=== PATIENT | female | born 1975 | race American Indian/Alaskan Native ===

== ENCOUNTER 2016-10-23 10:15 | Emergency (ER) | payer MEDICAID ==
[2016-10-23 11:07] VITALS: BP 117/61
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
[2016-10-23] MEDS ORDERED: THERMAZENE 50 GRAM TP SCH (13:00)
== END 2016-10-23 13:40 | disposition home or self-care (01) ==
LOC: ED 10:15
DX: T23.002A Burn of unspecified degree of left hand, unspecified site, initial encounter (principal); X10.0XXA Contact with hot drinks, initial encounter; Y93.89 Activity, other specified; Y99.8 Other external cause status; Y92.89 Other specified places as the place of occurrence of the external cause
CPT/HCPCS: 99282

== ENCOUNTER 2018-07-17 18:16 | Emergency (ER) | payer MEDICAID ==
[2018-07-17 18:41] VITALS: BP 138/80
[2018-07-17 19:30] LABS: HCG Qualitative,Urine Positive (Negative)
[2018-07-17 19:33] LABS: Bacteria,Urine 1+ /HPF (Negative); Bilirubin,Urine NEG (Negative); Blood,Urine NEG (Negative); Color,Urine Yellow (Yellow); Mucus,Urine FEW /HPF; Protein,Urine <15 mg/dL mg/dL (Negative); Urobilinogen,Urine < 2.0 mg/dL (<2.0); WBC,Urine < 1.0 /HPF (0.0-6.0)
--- NOTE | 2018-07-17 22:59 | Emergency Department Report ---
ED Female HPI - General Chief complaint: Urogenital-Female Stated complaint: VAGINAL BURNING Time Seen by Provider: 07/17/18 22:55 Source: patient, family Mode of arrival: Ambulatory Limitations: No Limitations - History of Present Illness Initial comments: This is a 43-year-old female patient here reported that she is having abdominal pain and that she is 3 weeks . She is complaining off vaginal burning denies any bleeding or discharge. She is also complaining of abdominal pain at 4 out of 10. Denies any nausea or vomiting. Denies any fever or chills. Patient is para 3 0 with 2 miscarriages. He does not have [facility]ATOR but [facility] she plans to get one pretty soon. MD Complaint: dysuria, pelvic pain Onset/Timin -: days(s) Location: suprapubic, other (urinary burning) Radiation: non-radiating Severity: mild Severity scale (0 -10): 4 Quality: cramping, burning Consistency: constant Improves with: other (after urinating and) Worsens with: urination Are you Now?: Yes (3 weeks) Last Menstrual Period: 06/21/18 EDC: 03/28/19 Associated Symptoms: abdominal pain, dysuria. denies: vaginal discharge, vaginal bleeding, nausea/vomiting, fever/chills, headaches, loss of appetite, hematuria, rash, seizure, shortness of breath, syncope, weakness - Related Data Sexually active: Yes Previous Rx's Medication Instructions Recorded Last Taken Type SILVER sulfADIAZINE 50 GRAM 1 applic TP BID #1 tube 10/23/16 Unknown Rx [Thermazene 50 Gram] Vit No.130/Iron/Folic 1 each PO QAM 30 Days #30 tablet 07/18/18 Unknown Rx [ Tablet] cephALEXin [Keflex] 500 mg PO Q12H 7 Days #14 cap 07/18/18 Unknown Rx Allergies Allergy/AdvReac Type Severity Reaction Status Date / Time No Known Allergies Allergy Unverified 10/23/16 11:02 ED Review of Systems ROS: Stated complaint: VAGINAL BURNING Other details as noted in HPI Constitutional: denies: chills, fever Eyes: denies: vision change ENT: denies: throat pain, congestion Respiratory: denies: cough, shortness of breath, wheezing Cardiovascular: denies: chest pain, palpitations, dyspnea on exertion, edema, syncope Gastrointestinal: abdominal pain. denies: nausea, vomiting, diarrhea, hematemesis, hematochezia Genitourinary: dysuria, abnormal menses. denies: urgency, frequency, hematuria, discharge, dyspareunia Musculoskeletal: denies: back pain, joint swelling, arthralgia, myalgia Skin: denies: rash Neurological: denies: headache, weakness, numbness, paresthesias, confusion, abnormal gait, vertigo ED Past Medical Hx - Past Medical History Previous Medical History?: No - Surgical History Past Surgical History?: Yes Additional Surgical History: D and C - Family History Family history: hypertension - Social History Smoking Status: Never Smoker Substance Use Type: None - Medications Home Medications: Home Medications Medication Instructions Recorded Confirmed Last Taken Type SILVER sulfADIAZINE 50 GRAM 1 applic TP BID #1 tube 10/23/16 Unknown Rx [Thermazene 50 Gram] Vit No.130/Iron/Folic 1 each PO QAM 30 Days #30 tablet 07/18/18 Unknown Rx [ Tablet] cephALEXin [Keflex] 500 mg PO Q12H 7 Days #14 cap 07/18/18 Unknown Rx ED Physical Exam - General Limitations: No Limitations General appearance: alert, in no apparent distress - Head Head exam: Present: atraumatic, normocephalic, normal inspection - Eye Eye exam: Present: normal appearance, PERRL, EOMI Pupils: Present: normal accommodation - ENT ENT exam: Present: normal exam, normal orophraynx, mucous membranes moist - Neck Neck exam: Present: normal inspection, full ROM, other (no C-spine tenderness). Absent: tenderness, lymphadenopathy - Respiratory Respiratory exam: Present: normal lung sounds bilaterally. Absent: respiratory distress, chest wall tenderness - Cardiovascular Cardiovascular Exam: Present: regular rate, normal rhythm, normal heart sounds - GI/Abdominal GI/Abdominal exam: Present: soft, normal bowel sounds. Absent: distended, tenderness, rigid - Extremities Exam Extremities exam: Present: normal inspection, full ROM, normal capillary refill, other (No cce. + 2 pulses in all extremities, no neurovascular compromise). Ab sent: tenderness, pedal edema, joint swelling, calf tenderness - Back Exam Back exam: Present: normal inspection, full ROM, other (ambulates without any difficulties). Absent: tenderness, CVA tenderness (R), CVA tenderness (L), muscle spasm, paraspinal tenderness, vertebral tenderness, rash noted - Neurological Exam Neurological exam: Present: alert, oriented X3, normal gait, reflexes normal. Absent: motor sensory deficit - Psychiatric Psychiatric exam: Present: normal affect, normal mood - Skin Skin exam: Present: warm, dry, intact, normal color. Absent: rash ED Course Vital Signs 07/17/18 18:38 Temperature 98.1 F Pulse Rate 88 Respiratory 16 Rate Blood Pressure 138/80 O2 Sat by Pulse 100 Oximetry - Reevaluation(s) Reevaluation #1: 07/18/18 05:08 Patient stable throughout ED course. She has small UTI and was given Keflex 500 mg by mouth. ED Medical Decision Making - Lab Data Result diagrams: 07/18/18 00:49 Lab Results 07/17/18 07/18/18 07/18/18 Range/Units 19:00 00:49 00:49 Sodium 135 L (137-145) mmol/L Potassium 3.6 (3.6-5.0) mmol/L Chloride 100.2 (98-107) mmol/L Carbon Dioxide 21 L (22-30) mmol/L Anion Gap 17 mmol/L BUN 9 (7-17) mg/dL Creatinine 0.7 (0.7-1.2) mg/dL Estimated GFR > 60 ml/min BUN/Creatinine Ratio 13 % Glucose 89 (65-100) mg/dL Calcium 9.0 (8.4-10.2) mg/dL HCG, Quant 928.7 H (0-4) mIU/mL Urine Color Yellow (Yellow) Urine Turbidity Clear (Clear) Urine pH 5.0 (5.0-7.0) Ur Specific [place] 1.011 (1.003-1.030) Urine Protein <15 mg/dl (Negative) mg/dL Urine Glucose (UA) Neg (Negative) mg/dL Urine Ketones Neg (Negative) mg/dL Urine Blood Neg (Negative) Urine Nitrite Neg (Negative) Ur Reducing Substances Not Reportable Urine Bilirubin Neg (Negative) Urine Ictotest Not Reportable Urine Urobilinogen < 2.0 (<2.0) mg/dL Ur Leukocyte Esterase Neg (Negative) Urine WBC (Auto) < 1.0 (0.0-6.0) /HPF Urine RBC (Auto) 1.0 (0.0-6.0) /HPF U Epithel Cells (Auto) 1.0 (0-13.0) /HPF Urine Bacteria (Auto) 1+ (Negative) /HPF Urine Mucus Few /HPF Urine HCG, Qual Positive A (Negative) - Radiology Data Radiology results: report reviewed Preliminary ultrasound shows patient at 3 weeks and 6 days . Expected date of delivery is 03/28/2019. The final report to follow. - Medical Decision Making This is a 43-year-old female here reports that she is 3 weeks and she is having abdominal cramping in her pelvic area along with urinary burning. Patient had ultrasound OB done and preliminary report shows 3 weeks and 6 days but no other findings except for right and left ovary is stable with 1.6 cm cyst to left ovary. is too early at this point to the embryonic structure. Her quantitative hCG is 928.7. BMP stable, urinalysis 1+ bacteria and patient is having dysuria so she was started on Keflex 500 mg by mouth. Her quantitative hCG is 928.7. Urine culture sent. Vital signs are stable she is afebrile and I discussed ultrasound and diagnosis with the patient. Patient discharged home with prescription for Keflex and vitamin and to follow- up with [facility] [employer] [facility]ATOR in 2 days. - Differential Diagnosis ectopic , UTI, abdominal pain in Critical care attestation.: If time is entered above; I have spent that time in minutes in the direct care of this critically ill patient, excluding procedure time. ED Disposition Clinical Impression: Abdominal pain during in first trimester, Left ovarian cyst Acute cystitis during Qualifiers: Trimester: first trimester Qualified Code(s): O23.11 - Infections of bladder in , first trimester Dysuria during Qualifiers: Trimester: first trimester Qualified Code(s): O26.891 - Other specified related conditions, first trimester; R30.0 - Dysuria Disposition: DC-01 TO HOME OR SELFCARE Is pt being admited?: No Does the pt Need Aspirin: No Condition: Stable Instructions: Ovarian Cyst (ED), Dysuria (ED), Urinary Tract Infection in Women (ED), Abdominal Pain in (ED) Additional Instructions: Please follow up with MA[facility] CONTROL OPERATOR as discussed. Take Keflex for urinary tract infection Start taking an vitamin If Condition worsens, return to the emergency room Please increase her fluid intake Referrals: PRIMARY CARE, [Primary Care Provider] - 2-3 Days [facility] [Provider Group] - 07/19/18 Forms: Work/School Release Form(ED)
[2018-07-18 01:28] LABS: BUN/Creatinine Ratio 13; Blood Urea Nitrogen 9 mg/dL (7-17); Hemolysis Index 9
[2018-07-18] MEDS ORDERED: KEFLEX PO ONE (05:08)
--- NOTE | 2018-07-18 07:22 | Ultrasound Report ---
FINAL REPORT PROCEDURE: US OB TRANSABDOMINAL TECHNIQUE: Real-time transabdominal sonography of the uterus, placenta, amniotic fluid, adnexa, and fetus was performed with image documentation. Measurements were obtained to determine age/size. M-mode Doppler was used to document heartbeat. HISTORY: abdominal pain and COMPARISON: No prior studies are available for comparison. FINDINGS: Uterus is 9 x 4.1 x 6.3 centimeters. The endometrium is thickened at 12.7 millimeters. There is no th ere is no endometrial fluid. There is no gestational sac. The right ovary measures 2.6 x 2.4 x 1.7 centimeters. The left ovary measures 4 x 2.4 x 2.9 centimete rs. There is a 1.6 centimeter left ovarian cyst. There is no evidence of ectopic . There is no evidence of free pelvic fluid. IMPRESSION: There is no evidence of intrauterine or ectopic .
--- NOTE | 2018-07-18 07:22 | Ultrasound Report ---
FINAL REPORT PROCEDURE: US OB TRANSVAGINAL TECHNIQUE: Real-time transvaginal sonography of the uterus, placenta, amniotic fluid, adnexa, and fe tus was performed with image documentation. Measurements were obtained to determine age/size. M -mode Doppler was used to document heartbeat. CPT 82973 HISTORY: abdominal pain and COMPARISON: No prior studies are available for comparison. FINDINGS: Uterus is 9 x 4.1 x 6.3 centimeters. The endometrium is thickened at 12.7 millimeters. There is no th ere is no endometrial fluid. There is no gestational sac. The right ovary measures 2.6 x 2.4 x 1.7 centimeters. The left ovary measures 4 x 2.4 x 2.9 centimete rs. There is a 1.6 centimeter left ovarian cyst. There is no evidence of ectopic . There is no evidence of free pelvic fluid. IMPRESSION: There is no evidence of intrauterine or ectopic .
== END 2018-07-18 05:26 | disposition home or self-care (01) ==
LOC: ED 18:16
DX: O23.11 Infections of bladder in pregnancy, first trimester (principal); O26.891 Other specified pregnancy related conditions, first trimester; N83.202 Unspecified ovarian cyst, left side; Z3A.01 Less than 8 weeks gestation of pregnancy
CPT/HCPCS: 36415; 76801; 76817; 80048; 81001; 81025; 84702; 87086; 99284